=== PATIENT | female | born 1955 | race African-American/Black ===

== ENCOUNTER 2016-12-23 22:38 | Observation (INO) | payer OTHER ==
--- NOTE | ~2016-12-23 | EKG ---
PATIENT: MARRY HERNANDEZ UNIT #: [id number] Ventricular Rate: 58 BPM Atrial Rate: 58 BPM P-R Interval: 190 ms QRS Duration: 80 ms Q-T Interval: 416 ms QTC Calculation(Bezet): 408 ms P Gaastra: 66 degrees Calculated R Gaastra: 13 degrees Calculated T Gaastra: 80 degrees Diagnosis Line: Sinus bradycardia Diagnosis Line: Otherwise normal ECG Diagnosis Line: When compared with ECG of 10-JUN-2015 13:29, Diagnosis Line: No significant change was found Diagnosis Line: Confirmed by DILAN REEVES MD ([id number]) on Diagnosis Line: 12/24/2016 7:25:46 AM INTERPRETING LUCAS KRISHNAMURTHY
--- NOTE | ~2016-12-23 | CT71 ---
[facility] A Service of [facility] RADIOLOGY TEXT RESULTS PATIENT: MARRY HERNANDEZ LOCATION: [facility] 577-01 : [birth year] UNIT #: [id number] AGE: [address]: Vesna Quiroz MD SEX: F ORDER DR: [id number] [facility] [address] [place], [place] [address] [id number] I MR#: [id number] Acc #: [id number] NAME: MARRY HERNANDEZ : 1955 SEX: F STUDY DATE/TIME: 12/26/2016 9:21 UNIT: [facility] ROOM: [facility] STUDY DESCRIPTION: CT Head Wo Contrast Attending Physician: Vesna Quiroz M.D. Ordering Physician: Vesna Quiroz M.D. Primary Care Physician: Pako Chang M.D. MEDICAL IMAGING REPORT This report is preliminary unless electronic signature is present ADDENDUM Head CT 12/26 INDICATIONS Frontal headache that started last night. Axial images were obtained from base to the vertex without contrast. Comparison made with 04/03/2011. This CT exam was performed with one or more of the following radiation dose reduction techniques: automatic exposure control, adjustment of mA and/or kV according to patient size, and iterative reconstruction. FINDINGS Mild generalized atrophy is present. Ventricular size and configuration within normal limits. Chronic small vessel ischemic changes are present in the white matter. Old bilateral white matter infarcts are suspected. No acute infarct or hemorrhage. There are no masses. Atherosclerotic calcifications are present in the carotid siphons. No skull fracture. There is an old medial orbital wall fracture on the right. There is probably old left zygomatic arch fracture. IMPRESSION No acute intracranial abnormalities. Dictated by... James Smith Jr., M.D. THIS IS AN ELECTRONICALLY VERIFIED REPORT James Smith Jr., M.D. at 12/26/2016 10:49 AM Dominique TD: 12/26/2016 10:14 [facility] A Service of [facility] RADIOLOGY TEXT RESULTS PATIENT: MARRY HERNANDEZ LOCATION: [facility] 577-01 : [birth year] UNIT #: [id number] AGE: [address]: Vesna Quiroz MD SEX: F ORDER DR: JOB #: [id number] MEDICAL IMAGING REPORT Page 1 of 1 COPY
--- NOTE | ~2016-12-23 | HP ---
Unit #: [id number] #: [id number] Patient: GABRIELLA CHAVEZ [id number] [facility]. [place] [address] [place], [place] [address] [id number] I MR#: [id number] NAME: GABRIELLA CHAVEZ ROOM: 577 Age: 61 Sex: F Admission Date: 12/23/2016 : 1955 Attending Physician: Vesna Quiroz M.D. Primary Care Physician: Pako Chang M.D. HISTORY AND PHYSICAL ADMISSION DIAGNOSES 1. Chest pain. 2. Bronchitis. 3. Questionable acute exacerbation of chronic obstructive pulmonary disease. 4. Chronic pain. 5. Tobacco use. HISTORY OF PRESENT ILLNESS Miss Gabriella Chavez is a 61-year-old female, patient of Dr. Chang, who presented to the emergency room with the complaints of substernal chest pain and elevated blood pressures. Patient states that in the last three days she has been having this substernal chest pain which she describes as somebody sitting on her chest. She tells me that initially when she started having the chest pain her blood pressure was as high as 195. She was at one point on blood pressure pills, but subsequently, Dr. Chang took her off of it. The only medication that she claims she was taking at home was Lortab for her chronic pain issues. She states that there are no alleviating or aggravating factors to her chest pain. It was accompanied by some cough along with yellow sputum production. She denied any nausea, vomiting, diarrhea, or abdominal pain, denied any diaphoresis, denied any nocturnal dyspnea or orthopnea, denied any syncope, and denied any fever or chills. She rated the pain as 6-7 out of 10 at the most, currently at zero. So a 12-point review of systems on this patient basically is negative except as above. PAST MEDICAL HISTORY Untreated hypertension what it looks like and chronic pain. PAST SURGICAL HISTORY 1. Right shoulder surgery. 2. Hysterectomy. HOME MEDICATIONS Lortab. ALLERGIES No known drug allergies. SOCIAL HISTORY She is a lifetime smoker. Denies any alcohol or illicit drugs. FAMILY HISTORY Unremarkable. Unit #: [id number] #: [id number] Patient: GABRIELLA CHAVEZ PHYSICAL EXAMINATION GENERAL: Patient is a 61-year-old pleasant female in no acute distress. VITAL SIGNS: Blood pressure 142/88, heart rate 63, respirations 18, and temperature 99.2. HEENT: Head is atraumatic. Pupils equal, round, and reactive to light and accommodation. Extraocular muscles intact. Oropharynx clear. NECK: Supple. No mass, no JVD, and no bruits. CHEST: Diminished bilaterally with diminished air movement in and out. Very mild expiratory wheezing. CARDIOVASCULAR: S1 and S2. No murmurs. ABDOMEN: Soft, nontender, and nondistended. LOWER EXTREMITIES: Without any cyanosis, clubbing, or edema. NEUROLOGIC: Alert and oriented x3. No focal deficits. DIAGNOSTIC STUDIES LABORATORY: D-dimer at 326. Set of cardiac enzymes negative with troponin less than 0.05. White count at 14.7 and hemoglobin and hematocrit 12.6 and 38.6. Rest of the chemistry unremarkable. IMAGING: Chest x-ray shows no active disease. ASSESSMENT AND PLAN 1. Chest pain, status post Cardiology evaluation. Stress test is currently pending. Continue aspirin. Follow up on 2D echocardiogram. Will check a lipid panel. 2. Bronchitis with questionable acute exacerbation of chronic obstructive pulmonary disease. Will start on DuoNebs q.4 hours p.r.n. and start on Levaquin. Ask for Pulmonary evaluation. 3. Chronic pain. Continue home Radcliffe. 4. Tobacco use. Counseled on the importance of quitting. 5. Gastrointestinal and deep venous thrombosis prophylaxis. Continue proton pump inhibitor and Lovenox. 6. Hypertension. Started on amlodipine. 1. Dictated by Luca Sommer M.D. OC/am TD: 12/24/2016 19:54 JOB #: [id number] HISTORY AND PHYSICAL Page 1 of 1 X Luca Sommer MD HISTORY AND PHYSICAL
--- NOTE | ~2016-12-23 | CT57 ---
[facility] A Service of [facility] & [facility] RADIOLOGY TEXT RESULTS PATIENT: MARRY HERNANDEZ LOCATION: [facility] 577-01 : [birth year] UNIT #: [id number] AGE: [address]: Vesna Quiroz MD SEX: F ORDER DR: [id number] [facility] [address] [place], [place] [address] [id number] I MR#: [id number] Acc #: [id number] NAME: MARRY HERNANDEZ : 1955 SEX: F STUDY DATE/TIME: 12/24/2016 19:14 UNIT: [facility] ROOM: [facility] STUDY DESCRIPTION: CT Chest Wo Cont Attending Physician: Vesna Quiroz M.D. Ordering Physician: Danielle Rivera M.D. Primary Care Physician: Pako Chang M.D. MEDICAL IMAGING REPORT This report is preliminary unless electronic signature is present EXAM Chest CT without contrast. DATE OF EXAM 12/24/2016 INDICATIONS 61-year-old female with cough, shortness of air, chest pain for 2-3 days, pneumonia. TECHNIQUE Noncontrast CT of the chest was performed. NOTE: This CT exam was performed with one or more of the following radiation dose reduction techniques: automatic exposure control, adjustment of mA and/or kV according to patient size, and iterative reconstruction. COMPARISON Compared with 04/03/1975. FINDINGS CT CHEST: Lungs are emphysematous. No significant pleural effusion. There is patchy tree in bud infiltrate and partial consolidation of the right lower lobe. There are filling defects within the tracheobronchial tree on the right and to a lesser extent on the left along with similar, more confluent consolidation on the left. Imaging features are most characteristic of bilateral bibasilar pneumonia. Additional tree-in-bud opacities are present in the superior segment of the right lower lobe and in the posterior inferior right upper lobe. Patchy tree-in-bud infiltrates also present in the lingula and left upper lobe. No pneumothorax. There is a probable intrathoracic goiter with mass effect upon the superior aspect of the trachea displaced anteriorly. The appearance is STS. [facility] A Service of [facility] & [facility] RADIOLOGY TEXT RESULTS PATIENT: MARRY HERNANDEZ LOCATION: [facility] 577-01 : [birth year] UNIT #: [id number] AGE: [address]: Vesna Quiroz MD SEX: F ORDER DR: unchanged from 2007, and most characteristic of a benign finding. The presumed intrathoracic goiter measures up to about 1.8 cm AP. There is no axillary adenopathy. Reactive-appearing mediastinal nodes are present. Redemonstration of smooth bilateral breast masses likely representing benign cysts incompletely characterized on this study. Suggest further evaluation with mammography if not recently performed. The largest in the right breast measures up to 2.2 cm and is new compared to the prior study. Ascending aorta is aneurysmal measuring up to 4.4 cm. The main pulmonary artery is dilated up to 4.1 cm most characteristic of pulmonary arterial hypertension. There is ectasia and mild aneurysmal dilatation of the descending thoracic aorta measuring up to 3.2 cm. Included upper abdomen demonstrates no acute finding. Osseous structures demonstrate no suspicious bone lesion. IMPRESSION 1. Imaging features most characteristic of multifocal pneumonia. Consider the possibility of aspiration pneumonia given the appearance of the right lower lobe and to a lesser extent the left lower lobe. There are more confluent areas of consolidation in the lung bases and tree-in-bud opacities are present bilaterally as described above. Imaging followup to clearing after appropriate therapy is recommended. No significant associated effusion. 2. Background changes of emphysema. 3. Aneurysmal dilatation of the ascending aorta up to 4.4 cm. It previously measured up to about 4 cm on the 2007 study. 4. Pulmonary arterial hypertension. 5. Intrathoracic goiter, unchanged from 2007. 6. Bilateral breast masses likely representing cysts, but incompletely characterized on this study. The largest measures greater than 2 cm in the right breast. This should be further evaluated with mammography if not recently performed. Dictated by... Remi Elizondo M.D. THIS IS AN ELECTRONICALLY VERIFIED REPORT Remi Elizondo M.D. at 12/24/2016 10:46 PM Charissa TD: 12/24/2016 21:54 JOB #: [id number] MEDICAL IMAGING REPORT Page 1 of 1 COPY
--- NOTE | ~2016-12-23 | CO ---
Unit #: [id number] #: [id number] Patient: MARRY CHAVEZ [id number] [facility]. [place] [id number]. [place], [place] [address] [id number] I MR#: [id number] NAME: MARRY CHAVEZ ROOM: 577 Age: 61 Sex: F Admission Date: 12/23/2016 : 1955 Attending Physician: Vesna Quiroz M.D. Primary Care Physician: Pako Chang M.D. Consultation Date: 12/24/2016 CONSULTATION REPORT REASON FOR CONSULTATION Chest pain. HISTORY OF PRESENT ILLNESS This is a 61-year-old -[place] female with no known coronary artery history, has been told she has hypertension but has not been on medication for about six years. She said about the last two weeks has been having this productive cough of yellowish sputum. She feels like she has a lot of chest congestion. She denies any fever or chills. She denies any shortness of breath. She said over the last three days, especially when she is coughing, she has this mid sternal chest pain. She said it feels like a heavy pushing pressure. She rates it on a pain scale of 1-10 to be about an 8. She denies any radiation of the pain up into her neck, bilateral jaws, shoulders, arms, or elbows. She does have chronic right shoulder surgery from a previous injury. Patient denies any dizziness, presyncope, or syncope. She denies any palpitations. No diaphoresis. Patient came into the hospital for further evaluation and management. In the emergency room, the patient's blood pressure was 151/94. Heart rate was 63, respirations 18, temperature 99.5, and O2 saturation was 98% on room air. Her chest x-ray was normal, nothing acute. Her EKG shows sinus bradycardia, heart rate 58 beats per minute, some possible Q-waves in V1 only. Patient will be admitted for further evaluation and management. Cardiology consulted. PAST MEDICAL HISTORY 1. Hypertension but has not been taking any medication for six years. Her PCP told her, her blood pressure was normal, it came back to normal. 2. Arthritis. 3. Chronic pain in her right shoulder, secondary from a previous injury. 4. Nicotine abuse. 5. No stress or cardiac cath. PAST SURGICAL HISTORY 1. Right shoulder surgery. 2. Proximal humeral fracture repair. 3. Hysterectomy. HOME MEDICATIONS 1. Lortab 10/325 one tablet p.o. twice daily for her pain in her shoulder. 2. She used to take medication for her blood pressure about six years, Unit #: [id number] #: [id number] Patient: MARRY CHAVEZ was told her blood pressure was normal, did not have to take it. ALLERGIES No known drug allergies. SOCIAL HISTORY The patient lives with her family. She works at the [employer] in [employer]. She says she is fairly active with that job. She smokes half pack cigarettes a day, been smoking 30 years. No alcohol or illicit drug abuse. FAMILY HISTORY Her mother at the age of 82 of congestive heart failure. Her father is living and doing well. Her siblings are in generally well health. REVIEW OF SYSTEMS See details in HPI. PHYSICAL EXAMINATION GENERAL: Ms. Chavez is a 61-year-old -[place] female in no acute respiratory distress. She is awake, alert, and oriented. VITAL SIGNS: Blood pressure 152/88, heart rate 62, respirations 16, temperature 99.5 (on admission 98.7). NECK: Trachea midline. No thyromegaly or lymphadenopathy. Normal carotid upstrokes. There is no jugular venous distention. HEART: S1, S2. Regular rate and rhythm. No clicks, murmurs, rubs. LUNGS: Diminished with a few faint scattered rhonchi, especially in upper airways. ABDOMEN: Soft, nontender. Positive bowel sounds present. EXTREMITIES: Pedal pulses are palpable. No pedal edema. DIAGNOSTIC STUDIES LABORATORY: Glucose is 112, BUN 10, creatinine 0.8, eGFR is 93.6, sodium 136, potassium 4.2, chloride 100, CO2 of 28, calcium 9.6. Total protein 8.2, albumin 3.9, bilirubin total 0.9, AST 26, ALT 20, alkaline phosphatase 83. WBC 14.7, hemoglobin 12.6, hematocrit 38.6, platelets 304,000. Initial cardiac enzymes: CK-MB is less than 1, troponin less than 0.05. CK-MB is less than 1, troponin less than 0.05. Negative influenza A and B. D-dimer is 326. IMAGING: Chest x-ray shows no active disease. The lungs are clear. CARDIOVASCULAR: EKG shows sinus bradycardia, heart rate 58 beats per minute, left atrial abnormality, probable Q wave in V1 only, slow R-wave progression, left ventricular hypertrophy. IMPRESSION 1. Chest pain, questionable in etiology. 2. Acute bronchitis. 3. Hypertension, poorly controlled. 4. Nicotine abuse. 5. Chronic pain in the right shoulder. PLAN 1. Cardiology consulted to assist with evaluation and management. 2. Cardiac enzymes so far are negative. 3. On interview and exam, her chest pain appears to be more musculoskeletal or possibly pleuritic in nature due to patient has Unit #: [id number] #: [id number] Patient: BLUE,MARRY symptoms of acute bronchitis. 4. If cardiac enzymes remain negative, will perform an exercise Cardiolite stress test to further evaluate for ischemic heart disease. 5. On exam, there are no signs or symptoms of acute congestive heart failure. 6. Obtain a fasting lipid profile and TSH and evaluate. 7. Encourage the patient to completely quit smoking. Smoking cessation information provided to patient. 8. Treatment for bronchitis per Dr. Quiroz. Thank you very much for allowing us to assist in the care. Further recommendations pending. Dictated by... Patricia Ordonez A.P.R.N. for Leonardo Calix TD: 12/25/2016 12:28 JOB #: [id number] CONSULTATION REPORT Page 1 of 1 X Patricia Ordonez APRN CONSULTATION REPORT
--- NOTE | ~2016-12-23 | CO ---
Unit #: [id number] #: [id number] Patient: MARRY HERNANDEZ [id number] [place] [address] [facility]. [place], [place] [address] [id number] I MR#: [id number] NAME: MARRY HERNANDEZ ROOM: 577 Age: 61 Sex: F Admission Date: 12/23/2016 : 1955 Attending Physician: Vesna Quiroz M.D. Primary Care Physician: Pako Chang M.D. CONSULTATION REPORT REASON FOR CONSULTATION COPD exacerbation. CHIEF COMPLAINT Shortness of breath and chest pain. HISTORY OF PRESENT ILLNESS Patient is a 61-year-old female with past medical history of severe COPD and also active smoker one pack per day, came in with complaint of cough, yellow colored sputum production and shortness of breath, admitted with complaint of retrosternal chest pain and workup for coronary artery disease. I am seeing the patient at bedside. She denies any nausea, vomiting, diarrhea. REVIEW OF SYSTEMS Positive for pallor. No edema. No cyanosis. No jaundice. PAST MEDICAL HISTORY 1. Hypertension. 2. Likely COPD. SOCIAL HISTORY Hsl-rvlh-vxa-day smoker, denies alcohol or drug abuse. FAMILY HISTORY None as per record. MEDICATION As per MAR, has been reviewed. PHYSICAL EXAMINATION VITAL SIGNS: Temperature currently is 98. Pulse 87. Respiration 12. Blood pressure 142/88. NEUROLOGICAL: Awake, alert and oriented. No neuro deficit. HEENT: PERRLA plus EOMI. NECK: Supple. No JVD. CHEST: Bilateral air entry. Bilateral mild rhonchi. GI: Nontender, soft, bowel sounds positive. EXTREMITIES: No edema. SKIN: No rashes. No ulcer. LYMPHATIC: No lymphadenopathy. DIAGNOSTIC STUDIES Unit #: [id number] #: [id number] Patient: MARRY HERNANDEZ LABORATORY: White count is 14. Flu test was negative. ASSESSMENT 1. Acute bronchitis. 2. Acute exacerbation of chronic obstructive pulmonary disease. 3. Chest pain. 4. Active smoker. PLAN Plan is to start patient on IV steroid, order noncontrast CT of the chest, continue IV antibiotic, bronchodilator, GI and DVT prophylaxis. Patient will be closely monitored. Please see orders for detailed plan. Thank you very much for this consultation. Dictated by... Leonardo Hudson/sari TD: 12/24/2016 21:20 JOB #: [id number] CONSULTATION REPORT Page 1 of 1 X Danielle Rivera MD CONSULTATION REPORT
--- NOTE | ~2016-12-23 | CR63 ---
[facility] A Service of [facility] & [facility] RADIOLOGY TEXT RESULTS PATIENT: MARRY HERNANDEZ LOCATION: [facility] : 59 UNIT #: [id number] AGE: [address]: Vesna Quiroz MD SEX: F ORDER DR: [id number] [facility] [address] [place], [place] [address] [id number] MR#: [id number] Acc #: [id number] NAME: MARRY HERNANDEZ : 1955 SEX: F STUDY DATE/TIME: 12/23/2016 22:42 UNIT: [facility] ROOM: STUDY DESCRIPTION: CR Chest 2 View Attending Physician: Tod Dawn D.O. Ordering Physician: Tod Dawn D.O. Primary Care Physician: Pako Chang M.D. MEDICAL IMAGING REPORT This report is preliminary unless electronic signature is present EXAM PA and lateral chest HISTORY Cough, shortness of air and chest pain for 2-3 days. COMPARISON STUDIES 12/22/2016. FINDINGS A PA and lateral view of the chest were obtained. Heart size and vascularity are normal. The lungs are clear. There is a right shoulder prosthesis present. IMPRESSION No active disease. Dictated by... Kevin Magallanes M.D. THIS IS AN ELECTRONICALLY VERIFIED REPORT Kevin Magallanes M.D. at 12/24/2016 1:59 AM FEL/pcl TD: 12/24/2016 00:07 JOB #: [id number] MEDICAL IMAGING REPORT Page 1 of 1 COPY
--- NOTE | ~2016-12-23 | DS ---
Unit #: [id number] #: [id number] Patient: MARRY HERNANDEZ [id number] [place] [address] [facility]. [place], [place] [address] [id number] I MR#: [id number] NAME: MARRY HERNANDEZ ROOM: 57 Age: 61 Sex: F Admission Date: 12/23/2016 : 1955 Discharge Date: 12/26/2016 Attending Physician: Vesna Quiroz M.D. Primary Care Physician: Pako Chang M.D. DISCHARGE SUMMARY FINAL DIAGNOSES 1. Chest pain. No cardiac workup at this time. It needs to be done as an outpatient. Most likely, a stress test will be done outpatient as per Dr. Fan. Patient had an echocardiogram done which showed an ejection fraction of 65% to 70%, left atrium is normal in size, mild aortic regurgitation, tricuspid valve is normal, and no evidence of any pericardial effusion. 2. Chronic obstructive pulmonary disease exacerbation. Patient was treated with IV Solu-Medrol and nebulizer treatment. Patient will be discharged home on prednisone and Ventolin inhaler. 3. Acute bronchitis and pneumonia. Patient was treated with IV Levaquin, and that will be changed to oral. A CT scan of the chest without contrast was done that showed multifocal pneumonia. It also showed aneurysmal dilatation of ascending aorta of up to 4.4 cm and also showed bilateral breast masses likely representing cyst but incompletely characterized on this study. Mammogram needed. Patient is being given antibiotic prescription. 4. Hypertension. Patient was diagnosed with hypertension during hospitalization. She was started on Norvasc 5 mg p.o. daily. Prescription has been written. Low-salt diet has been advised. 5. Tobacco abuse. Patient received nicotine patches during hospitalization. She would like to quit. I have encouraged nicotine cessation. Nicotine patch prescription is being given. DIAGNOSTIC STUDIES LABORATORY ON DISCHARGE: Sodium 137, potassium 4.6, chloride 102, BUN 15, creatinine 0.6, and calcium 10. WBC 14.5, hemoglobin 13, hematocrit 39.4, and platelet count of 333,000. Troponin less than 0.03. Lipid profile shows total cholesterol of 156, triglycerides 56, LDL 76, and HDL 69. Hemoglobin A1c 5.4. Troponin less than 0.03. D-dimer 326. IMAGING: CT scan of the head without contrast was done because of frontal headache and showed no acute intracranial abnormalities. CT scan of the chest showed multifocal pneumonia, emphysema, aneurysmal dilatation of the ascending aorta of up to 4.4 cm, pulmonary arterial hypertension, intrathoracic goiter unchanged from 2007, and bilateral breast masses, need mammogram. PHYSICAL EXAMINATION VITAL SIGNS ON DISCHARGE: Blood pressure is 133/91, respiratory rate 18, pulse 71, and temperature 98.1. CHEST: Fair air entry, decreased at the bases. CARDIOVASCULAR: S1 and S2 positive. Regular rhythm. ABDOMEN: Soft. Unit #: [id number] #: [id number] Patient: MARRY HERNANDEZ DISCHARGE INSTRUCTIONS 1. Patient is being discharged home in stable condition. 2. Follow up with primary care provider in one week. 3. Follow up with Dr. Fan on February 26 at 10:30 a.m. She will need a stress test as an outpatient. 4. Mammogram as an outpatient to evaluate cysts in bilateral breasts, right side more than left. 5. Repeat CT chest in six to eight weeks to evaluate infiltrate. 6. Tobacco cessation counseling done. 7. Blood pressure medications are being started. 8. Low-salt diet advised. 1. Dictated by... Leonardo Frederick TD: 12/27/2016 20:01 JOB #: [id number] DISCHARGE SUMMARY Page 1 of 1 X Vesna Quiroz MD X DISCHARGE SUMMARY
--- NOTE | ~2016-12-23 | EKG ---
PATIENT: MARRY HERNANDEZ UNIT #: [id number] Ventricular Rate: 55 BPM Atrial Rate: 55 BPM P-R Interval: 196 ms QRS Duration: 80 ms Q-T Interval: 462 ms QTC Calculation(Bezet): 441 [address]: 51 degrees Calculated R Social Circle: 6 degrees Calculated T Social Circle: 36 degrees Diagnosis Line: Sinus bradycardia Diagnosis Line: Nonspecific ST and T wave abnormality Diagnosis Line: Abnormal ECG Diagnosis Line: When compared with ECG of 23-DEC-2016 20:14, Diagnosis Line: No significant change was found Diagnosis Line: Confirmed by DILAN REEVES MD ([id number]) on Diagnosis Line: 12/26/2016 6:41:03 AM INTERPRETING LUCAS KRISHNAMURTHY
[2016-12-23 22:35] LABS: BASOPHIL# 0.1 X10e3 (0-0.3); BASOPHIL% 0.4 % (0-2.5); EOSINOPHIL# 0.2 X10e3 (0-0.7); EOSINOPHIL% 1.2 % (0.0-7.0); HEMATOCRIT 38.6 % (35.0-45.0); HEMOGLOBIN 12.6 gm/dL (12.0-16.0); LYMPHOCYTE# 2.9 X10e3 (1.0-3.5); LYMPHOCYTE% 19.9 % (17.0-45.0); MEAN CELL VOLUME 96.1 FL (83-96); MEAN CORPUSCULAR HEMOGLOBIN 31.5 PG (28-34); MEAN CORPUSCULAR HGB CONC 32.8 g/dL (30-36); MEAN PLATELET VOLUME 8.6 FL (6.5-11.5); MONOCYTE# 1.3 X10e3 (0-1.0); NEUTROPHIL# 10.2 X10e3 (1.5-7.1); NEUTROPHIL% 69.5 % (40-75); PLATELET COUNT 304 X10e3 (140-420); RED BLOOD COUNT 4.02 X10e (3.90-5.30); RED CELL DISTRIBUTION WIDTH 13.7 % (11.0-15.5); WHITE BLOOD COUNT 14.7 X10e3 (4.0-10.5)
[2016-12-23 22:36] LABS: DIFF IND NO
[~2016-12-23 22:38] MED LIST: ALPRAZOLAM0.5 MG PO; PERCOCET 5-3251 TAB PO; VIBRAMYCIN100 M1 PO
[2016-12-23 22:41] LABS: INFLUENZA A NEG (NEG); INFLUENZA B NEG (NEG)
[2016-12-23 22:54] LABS: POC - CKMB <1.0 ng/mL (0.0-7.9); POC - TROPONIN <0.05 ng/mL (<=0.05)
[2016-12-23 23:05] LABS: ALBUMIN SERUM 3.9 g/dL (3.5-5.0); BILIRUBIN, DIRECT 0.2 mg/dL (0.0-0.2); BILIRUBIN,INDIRECT 0.7 mg/dL (0.0-0.9); BILIRUBIN,TOTAL 0.9 mg/dL (0.2-2.0); BUN/CREATININE RATIO 12.5; CALCIUM SERUM 9.6 mg/dL (8.4-10.2); CREATININE SERUM 0.8 mg/dL (0.6-1.4); GLOM FILT RATE Estimated 93.6 mL/min (>60); POTASSIUM 4.2 mmol/L (3.5-5.1); PROTEIN TOTAL SERUM 8.2 g/dL (6.0-8.3)
[2016-12-23] MEDS ORDERED: NO MEDICATIONS (23:50)
[2016-12-24 00:55] LABS: POC - CKMB <1.0 ng/mL (0.0-7.9); POC - TROPONIN <0.05 ng/mL (<=0.05)
[2016-12-24 06:41] LABS: CK TOTAL 50 IU/L (26-140)
[2016-12-24 07:03] LABS: CHOLESTEROL 156 mg/dL (0-200); HDL CHOLESTEROL 69 mg/dL (35-95); LDL CHOLESTEROL 76 mg/dL (-130); LDL/HDL RATIO 1 RATIO (0-4); TRIGLYCERIDES 56 mg/dL (10-160)
[2016-12-24] MEDS ORDERED: LORTAB 10-3251 EACH PO (09:24)
[2016-12-24 12:54] LABS: CK TOTAL 46 IU/L (26-140)
[2016-12-25 05:19] LABS: HEMATOCRIT 37.5 % (35.0-45.0); HEMOGLOBIN 12.4 gm/dL (12.0-16.0); MEAN CELL VOLUME 95.7 FL (83-96); MEAN CORPUSCULAR HEMOGLOBIN 31.7 PG (28-34); MEAN CORPUSCULAR HGB CONC 33.1 g/dL (30-36); MEAN PLATELET VOLUME 8.9 FL (6.5-11.5); RED BLOOD COUNT 3.91 X10e (3.90-5.30); RED CELL DISTRIBUTION WIDTH 13.3 % (11.0-15.5); WHITE BLOOD COUNT 9.3 X10e3 (4.0-10.5)
[2016-12-25 06:43] LABS: BUN/CREATININE RATIO 18.57; CALCIUM SERUM 9.5 mg/dL (8.4-10.2); CREATININE SERUM 0.7 mg/dL (0.6-1.4); GLOM FILT RATE Estimated 109.9 mL/min (>60); POTASSIUM 4.5 mmol/L (3.5-5.1)
[2016-12-26 06:24] LABS: HEMATOCRIT 39.4 % (35.0-45.0); MEAN CELL VOLUME 96.2 FL (83-96); MEAN CORPUSCULAR HEMOGLOBIN 31.6 PG (28-34); MEAN CORPUSCULAR HGB CONC 32.9 g/dL (30-36); MEAN PLATELET VOLUME 8.8 FL (6.5-11.5); RED BLOOD COUNT 4.1 X10e (3.90-5.30); RED CELL DISTRIBUTION WIDTH 13.1 % (11.0-15.5)
[2016-12-26 06:25] LABS: WHITE BLOOD COUNT 14.5 X10e3 (4.0-10.5)
[2016-12-26 07:16] LABS: CREATININE SERUM 0.6 mg/dL (0.6-1.4); GLOM FILT RATE Estimated 115.6 mL/min (>60); POTASSIUM 4.6 mmol/L (3.5-5.1)
[2016-12-26] MEDS ORDERED: DELTASONE20 MG PO (16:32)
[2016-12-26] MEDS ORDERED: ASPIRIN EC81 M1 PO (16:33)
[2016-12-26] MEDS ORDERED: ACETAMINOPHEN650 M4 PO (16:33)
[2016-12-26] MEDS ORDERED: NICOTINE TRANSD14 MG TOP (16:33)
[2016-12-26] MEDS ORDERED: NORVASC PO (16:33)
[2016-12-26] MEDS ORDERED: LEVAQUIN750 M1 PO (16:34)
[2016-12-26] MEDS ORDERED: TUSSIN DM SYRU240 ML PO (16:35)
[2016-12-26] MEDS ORDERED: ALBUTEROL17 GM INH (16:35)
== END 2016-12-26 17:27 | disposition home or self-care (01) ==
LOC: CED 22:38 → CEDOF 23:45 → C5C 12-24 07:54
PROVIDERS: Emergency Medicine; Hospitalist; Internal Medicine; Physician Assistant Medical
DX: R07.89 Other chest pain (principal); J44.1 Chronic obstructive pulmonary disease with (acute) exacerbation; J20.9 Acute bronchitis, unspecified; J44.0 Chronic obstructive pulmonary disease with (acute) lower respiratory infection; F17.210 Nicotine dependence, cigarettes, uncomplicated; J18.9 Pneumonia, unspecified organism; I71.2 Thoracic aortic aneurysm, without rupture; N63 Unspecified lump in breast; I51.7 Cardiomegaly; I08.2 Rheumatic disorders of both aortic and tricuspid valves; I11.0 Hypertensive heart disease with heart failure; I50.30 Unspecified diastolic (congestive) heart failure; I27.2 Other secondary pulmonary hypertension; E04.9 Nontoxic goiter, unspecified; Z82.49 Family history of ischemic heart disease and other diseases of the circulatory system; M19.90 Unspecified osteoarthritis, unspecified site; G89.29 Other chronic pain; M25.511 Pain in right shoulder; Z79.891 Long term (current) use of opiate analgesic; Z79.899 Other long term (current) drug therapy; Z98.890 Other specified postprocedural states; Z90.710 Acquired absence of both cervix and uterus
CPT/HCPCS: 36415; 70450; 71020; 71250; 80048; 80061; 80076; 82550; 82553; 83036; 84484; 85025; 85027; 85379; 87804; 93005; 93306; 94640; 94760; 96372; 96374; 96375; 96376; 99285; G0378; J1650; J1956; J2930